=== PATIENT | female | born 1950 | race Caucasian/White ===

== ENCOUNTER → 2020-04-21 14:49 | Outpatient (CLI) | payer MEDICARE, OTHER, SELFPAY ==
--- NOTE | 2020-04-21 14:56 | CT_ITS ---
STUDY: CTA NECK WITH CONTRAST REASON FOR EXAM: Female, 69 years old. Carotid artery stenosis RADIATION DOSAGE (If Supplied By Facility): CTDIvol = ( 22.32 ) mGy, DLP = ( 581.77 ) mGycm TECHNIQUE: CT angiography with multi-detector data acquisition was performed from the aortic arch to the skull base following intravenous administration of IV 100mL Isovue-[id number]. MIP images were reconstructed from the axial data set. Post-processing of the angiographic images was performed, with multiplanar reformation and 3D reconstruction. Individualized dose optimization techniques were used for this CT. COMPARISON: None. FINDINGS: AORTIC ARCH: There is minimal atherosclerotic calcific plaque formation of the aortic arch and great vessels arising from the aortic arch, without a hemodynamically significant stenosis. There is a normal origin of the brachiocephalic, left common carotid, and left subclavian arteries. Minimal atherosclerotic plaque at the origin of the left common carotid artery. RIGHT CAROTID ARTERIES: Normal right common carotid artery (CCA). Normal right common carotid bulb. There is severe atherosclerotic plaque formation of the origin of the right internal carotid artery with a near complete occlusion. Normal visualized cervical portion of the right internal carotid artery. Normal origin of the right external carotid artery (ECA). LEFT CAROTID ARTERIES: Normal left common carotid artery (CCA). Normal left common carotid bulb. There is extensive atherosclerotic plaque formation of the origin of the left internal carotid artery with an estimated stenosis of greater than 70%. Normal visualized cervical portion of the left internal carotid artery. Normal origin of the left external carotid artery (ECA). VERTEBRAL ARTERIES: Normal bilateral vertebral arteries. CT/CTA Neck W/WO Contrast IMPRESSION: Greater than 90% stenosis at the origin of the right internal carotid artery secondary to calcific plaque. 70% stenosis at the origin of the left internal carotid artery. Electronically Signed: Pako Smith, at 15:38 EDT , Service support ,
[2020-04-21 15:16] LABS: CREATININE FINGERSTICK 0.7 mg/dL (0.55-1.02); EGFR FINGERSTICK > 60.0000 mL/min (>60)
== END ==
PROVIDERS: Referring Provider Surgery Vascular Surgery; Visit Provider Surgery Vascular Surgery
DX: I65.23 Occlusion and stenosis of bilateral carotid arteries (principal)
CPT/HCPCS: 70498; Q9967

== ENCOUNTER → 2020-05-21 06:44 | Outpatient (CLI) | payer MEDICARE, OTHER, SELFPAY ==
[2020-05-12 13:47] VITALS: BMI 27.6
--- NOTE | 2020-05-21 06:47 | ECHOD_ITS ---
Reason For Study: HTN Procedure This was a 2D Doppler, Color Flow transthoracic echocardiogram. Exam performed in department. Left Ventricle Normal LV size. Mild concentric left ventricular hypertrophy. Left ventricular systolic function is normal. The estimated ejection fraction is 60 %. Stage 1 diastolic dysfunction. No regional wall motion abnormalities noted. Right Ventricle Normal RV size. Normal systolic function. Atria Normal left atrium. Normal right atrium. Mitral Valve Normal mitral valve. Tricuspid Valve Normal tricuspid valve. Mild tricuspid valve insufficiency. Pulmonary artery systolic pressure is 22 mmHg. Aortic Valve Normal aortic valve. Trisinus/trileaflet aortic valve. Pulmonic Valve Normal pulmonic valve. Great Vessels Normal aortic root. Pericardium/Pleural No pericardial effusion. MMode/2D Measurements & Calculations LVIDd: 3.8 cm IVSd: 1.3 cm Ao root diam: 3.0 cm LVIDs: 2.7 cm LVPWd: 1.2 cm RVDd: 2.9 cm FS: 30.3 % LAV(MOD-bp): 57.9 ml LA A4 area: 17.1 cm2 LA dimension(2D): 3.9 cm LAV(MOD-bp) Indexed: 31.7 ml/m2 LAV(MOD-sp2): 57.5 ml LAV(MOD-sp4): 49.9 ml RA A4 area: 11.6 cm2 Doppler Measurements & Calculations MV E max jl: 72.9 cm/sec Lat Peak E' Jl: 7.1 cm/sec Med Peak E' Jl: 4.9 cm/sec MV A max jl: 103.9 cm/sec E/E' lat: 10.3 E/E' med: 14.8 MV E/A: 0.70 Ao V2 max: 123.5 cm/sec LV V1 max: 101.5 cm/sec PA V2 max: 88.9 cm/sec Ao max P.1 mmHg LV V1 max P.1 mmHg TR max jl: 235.5 cm/sec TR max P.2 mmHg Interpretation Summary Normal LV size. Mild concentric left ventricular hypertrophy. Left ventricular systolic function is normal. The estimated ejection fraction is 60 %. Stage 1 diastolic dysfunction. Ordering Physician: Greg Garcia Referring Physician: Greg Garcia Performed By: Rizwana Cummings RDCS
--- NOTE | 2020-05-21 10:01 | STRESSREP ---
Stress Test Report Exercise myocardial perfusion stress test. 69-year-old lady with a history of intermittent lightheadedness and peripheral vascular disease. Stress protocol: Resting EKG demonstrates sinus rhythm with a rate of 62 bpm premature ventricular complexes are noted. The patient exercised according to regular Henry protocol for a total duration of 6 minutes. The maximum heart rate attained was 133 bpm which was 89% of maximum predicted heart rate the maximum workload was 7 metabolic equivalents. The patient maintained sinus rhythm throughout the recording. At rest there were no ST or T wave changes noted to suggest ischemia at peak exercise upsloping ST changes were noted with no meet the criteria for ischemia. The resting blood pressure was 138/68 with a peak blood pressure 160/64. The test was discontinued due to the target heart rate being achieved. Myocardial perfusion protocol. 11.4 mCi of technetium 99m sestamibi was injected at rest. The patient exercised according to regular Henry protocol for 6 minutes at peak exercise 34.1 mCi of technetium 99m sestamibi was injected stress images were obtained stress and rest images were reconstructed and compared in the short axis vertical long horizontal long axis. Gated images were also obtained per Perfusion SPECT analysis: Review of the stress images demonstrate normal uptake of tracer noted in all areas of the myocardium with no areas of reversibility to suggest ischemia no previous infarct is noted. There was thickening of all morales. Gated SPECT analysis: The gated ejection fraction is 77%. Conclusion: Normal exercise myocardial perfusion stress test at a moderate workload. Preserved ejection fraction.
== END ==
PROVIDERS: Referring Provider Internal Medicine Cardiovascular Disease; Visit Provider Internal Medicine Cardiovascular Disease
DX: Z01.810 Encounter for preprocedural cardiovascular examination (principal); I25.10 Atherosclerotic heart disease of native coronary artery without angina pectoris
CPT/HCPCS: 78452; 93017; 93306; A9500; A4216